=== PATIENT | male | born 1990 | race Caucasian/White ===

== ENCOUNTER 2019-02-23 20:04 | Emergency (ER) | payer OTHER ==
[2019-02-23 20:10] VITALS: BP 131/71; PULSE 73; TEMP 97.5; BMI 27.8
[2019-02-23] MEDS ORDERED: IBUPROFEN 600 MG TABLET (FP) PO ONE ×2 (20:22→20:25)
--- NOTE | 2019-02-23 20:29 | PDOC ---
Documentation entered by Hilda Srivastava SCRIBE, acting as scribe for Serafin Varghese MD. Serafin Varghese MD: This documentation has been prepared by the robertibe, Hilda Srivastava SCRIBE, under my direction and personally reviewed by me in its entirety. I confirm that the documentation accurately reflects all work , treatment, procedures, and medical decision making performed by me. History of Present Illness - General Chief Complaint: Pain, Acute Stated Complaint: SLIPPED ON ICE HITTING BACK ON STAIRS History Source: Patient Exam Limitations: No Limitations - History of Present Illness Initial Comments: 02/23/19 20:22 The patient is a 28-year-old male who presents to the emergency department s/p a fall. The patient reports around 2:30 pm today he was working when he slipped on ice and fell backwards, landing on his mid-lower back. Denies head injury or LOC. The patient reports following the fall, he had generalized back pain, with a severity of 5/10, with mild improvement following the incident. The patient reports he went back to work however, the pain worsened, and the patient describes the pain as achy and constant. Denies taking any medication for the pain. Denies any numbness or tingling. PAST MEDICAL HISTORY: no significant history PAST SURGICAL HISTORY: Pyloric stenosis repair, L. tibial fracture repair. FAMILY HISTORY: no pertinent history SOCIAL HISTORY: Pt lives with family and is employed w/ [employer] MEDICATIONS: reviewed ALLERGIES: As per nursing notes Review of system: General: No fevers or chills, no weakness, no weight loss HEENT: No change in vision. No sore throat,. No ear pain CardioVascular: No chest pain or shortness of breath Respiratory:No cough, or wheezing. Gastrointestinal: no nausea, vomiting, diarrhea or constipation, No rectal bleeding Genitourinary: No dysuria, hematuria, or frequency Musculoskeletal: +back pain. No joint or muscle pain or swelling Neurologic: No headache, vertigo, dizziness or loss of consciousness Psychiatric: nor depression Skin: No rashes or easy bruising Endocrine: no increased thirst or abnormal weight change Allergic: no skin or latex allergy All other systems reviewed and normal Physical exam: GENERAL: The patient is awake, alert, and fully oriented, in no acute distress. HEAD: Normal with no signs of trauma. EYES: Pupils equal, round and reactive to light, extraocular movements intact, sclera anicteric, conjunctiva clear. EXTREMITIES: Normal range of motion, no edema. BACK: +Mild tenderness on palpation of the mid-thoracic spine and upper lumbar spine. No paraspinal tenderness, neurovascularly intact. NEUROLOGICAL: Normal speech, normal gait. PSYCH: Normal mood, normal affect. SKIN: Warm, Dry, normal turgor, no rashes or lesions noted. Assessment and plan: This is a 28-year-old male who comes in complaining of back pain secondary to a slip and fall on ice. Patient feet went out from under him and he went backward onto his back. Patient did not hit his head and denies any other complaints. On my exam patient did have some point tenderness in the upper lumbar and mid thoracic spine area. Thoracic and lumbar x-rays were ordered. 02/23/19 20:30 02/23/19 22:28 X-rays reviewed by me no acute pathology of the lumbar spine however the thoracic spine is a questionable area that I will get a CT CT scan was done and read by the radiologist as no acute pathology. Patient discharged we will follow-up with his primary care doctor. Past History - Past Medical History Allergies/Adverse Reactions: Allergies Allergy/AdvReac Type Severity Reaction Status Date / Time No Known Allergies Allergy Verified 02/23/19 20:05 Home Medications: Ambulatory Orders NK [No Known Home Medication] 02/23/19 - Surgical History GI Surgery: Yes (pyloric stenosis) Neurologic Surgery: Yes (TBI, contusion) - Immunization History Immunization Up to Date: Yes - Psycho Social/Smoking Cessation Hx Smoking History: Never smoked Hx Alcohol Use: No Drug/Substance Use Hx: No *Physical Exam - Vital Signs Last Vital Signs Temp Pulse Resp BP Pulse Ox 97.5 F L 73 16 131/71 100 02/23/19 20:07 02/23/19 20:07 02/23/19 20:07 02/23/19 20:07 02/23/19 20:07 ED Treatment Course - RADIOLOGY Radiology Studies Ordered: Category Date Time Status SPINE-LUMBAR SACRAL [RAD] Stat Radiology 02/23/19 20:21 Ordered SPINE-THORACIC [RAD] Stat Radiology 02/23/19 20:21 Ordered - Medications Given in the ED: ED Medications Discontinued Medications Generic Name Dose Route Start Last Admin Trade Name Freq PRN Reason Stop Dose Admin Ibuprofen 600 mg 02/23/19 20:22 02/23/19 20:26 Motrin - PO 02/23/19 20:23 600 mg ONCE ONE Administration Discharge - Discharge Information Problems reviewed: Yes Clinical Impression/Diagnosis: Low back strain Qualifiers: Encounter type: initial encounter Qualified Code(s): S39.012A - Strain of muscle, fascia and tendon of lower back, initial encounter Fall Qualifiers: Encounter type: initial encounter Qualified Code(s): W19.XXXA - Unspecified fall, initial encounter Condition: Stable - Admission No - Follow up/Referral - Patient Discharge Instructions Additional Instructions: Take an anti-inflammatory for the next 5 to 7 days. Take either ibuprofen 3 tablets 3 times a day or naproxen 2 tablets twice a day . Return to the emergency department immediately with ANY new, persistent or worsening symptoms. Continue any medications as previously prescribed by your physician. You should follow up with your primary doctor as soon as possible regarding today's emergency department visit. . Please make sure your doctor reviews the results of your emergency evaluation. Thank you for coming to the Emergency Department today for your care. It was a pleasure to see you today. Please note that your evaluation is INCOMPLETE until you follow-up with your doctor. - Post Discharge Activity
== END 2019-02-23 22:45 | disposition home or self-care (01) ==
LOC: FER 20:04
CPT/HCPCS: 72070-TC-FY; 72100-TC-FY; 72128-TC; 99281-25

== ENCOUNTER 2022-01-03 16:08 | Emergency (ER) | payer SELFPAY ==
[2022-01-03 16:58] VITALS: BP 122/77; PULSE 79; TEMP 98.3; BMI 29.8
== END 2022-01-03 17:53 | disposition home or self-care (01) ==
LOC: FER 16:08
DX: R21 Rash and other nonspecific skin eruption (principal)
CPT/HCPCS: 99282-25